=== PATIENT | male | born 1950 | race Caucasian/White ===

== ENCOUNTER 2024-07-31 08:24 | Observation (INO) ==
[2024-07-31] MEDS ORDERED: Iodixanol 320 (CONTRAST) 100 ML SDV IV ONE (08:49)
[2024-07-31 09:21] LABS: ABS Basophils 0.1 10^3/uL (0.0-0.1); ABS Eosinophils 0.3 10^3/uL (0.0-0.5); ABS Lymphocytes 1.4 10^3/uL (1.0-4.8); ABS Monocytes 0.7 10^3/uL (0.0-1.1); ABS Neutrophils 6.9 10^3/uL (1.5-7.6); ABS Nucleated RBC 0.01 10^3/ul; Eosinophil % 2.9 %; Hematocrit 43.8 % (38-53); Hemoglobin 15.4 g/dL (13.2-16.3); Lymphocyte % 15.3 %; Mean Corpuscular Hemoglobin 34.9 pg (27-33); Mean Corpuscular Volume 99.5 fL (80-97); Mean Platelet Volume 6.7 fL (7.5-11.2); Nucleated Red Blood Cells % 0.1 %/100WBC (0.0-0.8); Platelet Count 321 10^3/uL (150-450); Red Blood Count 4.41 10^6/uL (4.06-5.63); Red Cell Distribution Width 12.8 % (12-17); White Blood Count 9.4 10^3/uL (3.6-10.2)
[2024-07-31 09:35] LABS: Activated Partial Thrombo Time 31.2 seconds (26.0-38.0); INR 0.96 (0.85-1.14)
[2024-07-31 09:55] LABS: Urine Appearance Clear; Urine Bilirubin Negative (Negative); Urine Blood Negative (Negative); Urine Color Colorless; Urine Glucose Negative (Negative); Urine Ketones Negative (Negative); Urine Nitrite Negative (Negative); Urine Protein Negative (Negative); Urine Specific Gravity 1.018 (1.002-1.030); Urine Urobilinogen Negative (Negative); Urine pH 6.5 (5.0-8.0)
[2024-07-31 10:08] LABS: ALT 40 U/L (7-52); AST 31 U/L (13-39); Albumin/Globulin Ratio 1.2 (1-3); Alcohol, S < 13 mg/dL (<13); Alkaline Phosphatase 55 U/L (35-149); Anion Gap 9 mmol/L (2-16); Blood Urea Nitrogen 12 mg/dL (6-24); CO2 Carbon Dioxide 25 mmol/L (22-32); Calcium 9.6 mg/dL (8.6-10.3); Chloride 100 mmol/L (101-111); Cholesterol 199 mg/dL; Creatinine, Serum 1.02 mg/dL (0.67-1.17); Direct Bilirubin 0.2 mg/dL (0.03-0.18); Globulin 3.4 g/dL (2-4); Glucose 120 mg/dL (70-100); Indirect Bilirubin 0.4 mg/dL (0.3-1.0); LDL Cholesterol 125 mg/dL; Potassium 4.3 mmol/L (3.5-5.0); Sodium 134 mmol/L (135-145); Total Bilirubin 0.6 mg/dL (0.2-1.0); Total Protein 7.4 g/dL (6.4-8.9); Triglycerides 108 mg/dL; eGFR CKD-EPI 78.6 (>60)
[2024-07-31] MEDS ORDERED: Metoprolol Tartrate 5 mg VIAL 5 ml VIAL (1 mg/ml) IV PRN (10:48)
[2024-07-31 12:22] LABS: Vitamin B12 270 pg/mL (180-914)
[2024-07-31] MEDS: Enoxaparin 40 MG/0.4 ML SYR SUBCUT SCH (13:30)
[2024-07-31] MEDS: Sulfur Hexaflouride MICROSPHR 25 MG VIAL IV PRN (14:59)
[2024-08-01 06:17] LABS: ABS Basophils 0.1 10^3/uL (0.0-0.1); ABS Eosinophils 0.3 10^3/uL (0.0-0.5); ABS Lymphocytes 1.1 10^3/uL (1.0-4.8); ABS Monocytes 0.8 10^3/uL (0.0-1.1); ABS Neutrophils 6.2 10^3/uL (1.5-7.6); ABS Nucleated RBC 0.01 10^3/ul; Hematocrit 38.8 % (38-53); Hemoglobin 13.5 g/dL (13.2-16.3); Lymphocyte % 13.2 %; Mean Corpuscular Hemoglobin 34.7 pg (27-33); Mean Corpuscular Hgb Conc 34.8 g/dL (31-36); Mean Corpuscular Volume 99.6 fL (80-97); Mean Platelet Volume 6.8 fL (7.5-11.2); Nucleated Red Blood Cells % 0.1 %/100WBC (0.0-0.8); Platelet Count 293 10^3/uL (150-450); White Blood Count 8.4 10^3/uL (3.6-10.2)
[2024-08-01 06:31] LABS: Calcium 9.1 mg/dL (8.6-10.3); Creatinine, Serum 1.14 mg/dL (0.67-1.17); Magnesium 2.1 mg/dL (1.9-2.7); Potassium 4.2 mmol/L (3.5-5.0); eGFR CKD-EPI 68.8 (>60)
[2024-08-01 10:11] VITALS: BP 158/94
== END 2024-08-01 12:07 | disposition home or self-care (01) ==
LOC: EDHOLD 08:24 → ED 08:24 → SUATTDRO 10:47 → EDHOLD 18:03 → MEDTELE 20:03
PROVIDERS: ADMIT Hospitalist; ATTEND Student in an Organized Health Care Education/Training Program